=== PATIENT | female | born 1995 | race African-American/Black ===

== ENCOUNTER 2021-06-04 14:34 | Emergency (ER) | payer SELFPAY ==
[~2021-06-04] VITALS: Ht 167 cm; Wt 56.6 kg
[~2021-06-04 14:34] MED LIST: DICY20TA57 PO; FAMO20TA5 PO
--- NOTE | 2021-06-04 14:52 | ED GU-Female ---
General Chief Complaint: Female Reproductive Stated Complaint: CRAMPING, VAGINAL BLEEDING Source: patient Exam Limitations: no limitations History of Present Illness Date Seen by Provider: Jun 04, 2021 Time Seen by Provider: 14:51 Initial Comments To ER with lower abdominal cramping and vaginal bleeding. History of an ectopic . She had sex on May 23, she has had vaginal discharge and not been feeling well since then. She did take one test at home that was positive. Timing/Duration: constant Severity/Quality: moderate Location: suprapubic Radiation: none Activities at Onset: none Prior Genitourinary Problems: none Associated Symptoms: denies symptoms Allergies and Home Medications Allergies Coded Allergies: No Known Drug Allergies (Unverified , 09/08/13) Home Medications Dicyclomine Hcl 20 Mg Tablet, 1 EACH PO QID PRN Prescribed by: CHANO LOPEZ on 09/08/13 1859 Famotidine 20 Mg Tablet, 1 EACH PO BID Prescribed by: CHANO LOPEZ on 09/10/13 0110 Patient Home Medication List Home Medication List Reviewed: Yes Review of Systems Review of Systems Constitutional: see HPI EENTM: see HPI Respiratory: no symptoms reported Cardiovascular: no symptoms reported Genitourinary: no symptoms reported Musculoskeletal: no symptoms reported Skin: no symptoms reported Psychiatric/Neurological: No Symptoms Reported Endocrine: No Symptoms Reported Past Kbuilja-Lgolmo-Oxdgft Hx Past Medical History Reproductive Disorders: No Physical Exam Vital Signs Vital Signs - First Documented 06/04/21 14:55 Temp 36.6 Pulse 99 Resp 20 B/P (MAP) 126/85 (99) Pulse Ox 100 Capillary Refill : Height, Weight, BMI Height: '" Weight: 130lbs. oz. 58.380437ru; BMI Method:Stated General Appearance: WD/WN, no apparent distress HEENT: PERRL/EOMI, normal ENT inspection Cardiovascular: regular rate, rhythm, no murmur Respiratory: no respiratory distress, no accessory muscle use Gastrointestinal: normal bowel sounds, non tender, soft Extremities: normal range of motion, non-tender Neurologic/Psychiatric: alert, normal mood/affect, oriented x 3 Skin: normal color, warm/dry Progress/Results/Core Measures Suspected Sepsis SIRS Temperature: Pulse: Respiratory Rate: Laboratory Tests 06/04/21 15:00: White Blood Count 5.9 Blood Pressure / Mean: Laboratory Tests 06/04/21 15:00: Platelet Count 200 Results/Orders Lab Results Laboratory Tests Test 06/04/21 14:45 06/04/21 15:00 Range/Units Urine Color YELLOW Urine Clarity CLEAR Urine pH 6.5 5-9 Urine Specific [place] 1.025 H 1.016-1.022 Urine Protein NEGATIVE NEGATIVE Urine Glucose (UA) NEGATIVE NEGATIVE Urine Ketones TRACE H NEGATIVE Urine Nitrite NEGATIVE NEGATIVE Urine Bilirubin NEGATIVE NEGATIVE Urine Urobilinogen 1.0 < = 1.0 MG/DL Urine Leukocyte Esterase NEGATIVE NEGATIVE Urine RBC (Auto) NEGATIVE NEGATIVE Urine RBC NONE /HPF Urine WBC 0-2 /HPF Urine Crystals PRESENT H /LPF Urine Amorphous Sediment FEW VINI URATES H /LPF Urine Bacteria TRACE /HPF Urine Casts NONE /LPF Urine Mucus LARGE H /LPF Urine Culture Indicated NO White Blood Count 5.9 4.3-11.0 10^3/uL Red Blood Count 5.28 H 3.80-5.11 10^6/uL Hemoglobin 12.3 11.5-16.0 g/dL Hematocrit 38 35-52 % Mean Corpuscular Volume 73 L 80-99 fL Mean Corpuscular Hemoglobin 23 L 25-34 pg Mean Corpuscular Hemoglobin Concent 32 32-36 g/dL Red Cell Distribution Width 14.9 H 10.0-14.5 % Platelet Count 200 130-400 10^3/uL Mean Platelet Volume 11.5 9.0-12.2 fL Immature Granulocyte % (Auto) 0 % Neutrophils (%) (Auto) 57 42-75 % Lymphocytes (%) (Auto) 30 12-44 % Monocytes (%) (Auto) 10 0-12 % Eosinophils (%) (Auto) 4 0-10 % Basophils (%) (Auto) 0 0-10 % Neutrophils # (Auto) 3.3 1.8-7.8 10^3/uL Lymphocytes # (Auto) 1.7 1.0-4.0 10^3/uL Monocytes # (Auto) 0.6 0.0-1.0 10^3/uL Eosinophils # (Auto) 0.2 0.0-0.3 10^3/uL Basophils # (Auto) 0.0 0.0-0.1 10^3/uL Immature Granulocyte # (Auto) 0.0 0.0-0.1 10^3/uL Human Chorionic Gonadotropin, Quant 37 H <5 MIU/ML My Orders Orders - ALCIDES RIGGS APRN Ua Culture If Indicated (06/04/21 14:38) Cbc With Automated Diff (06/04/21 14:38) Hcg,Quantitative (06/04/21 14:50) Abo Rh Type (06/04/21 14:50) Ob Single Fetus<14 [id number] (06/04/21 15:28) Vital Signs/I&O 06/04/21 14:55 Temp 36.6 Pulse 99 Resp 20 B/P (MAP) 126/85 (99) Pulse Ox 100 Capillary Refill : Departure Communication (Admissions) NAME: SAMANTHA RIOJAS [facility] REC#: [id number] PT STATUS: REG ER : 1995 PHYSICIAN: ALCIDES RIGGS APRN ADMIT DATE: 06/04/21/ER Signed Date of Exam:06/04/21 US OB SINGLE FETUS<14 [id number] PROCEDURE: US OB SINGLE FETUS <14 WKS. TECHNIQUE: Multiple real-time grayscale images were obtained over the gravid uterus in various projections. INDICATION: Threatened miscarriage Uterus measures 7.0 x 5.3 x 5.5 cm. Endometrial stripe is 14 mm. There is no sonographic evidence for an intrauterine gestational sac. There is a thin layer of fluid within the endometrial cavity. Right ovary appears normal. Left ovary is obscured by bowel gas. There is no intraperitoneal free fluid seen. IMPRESSION: There is no sonographic evidence for an intrauterine or extrauterine . Dictated by: Dictated on workstation # [id number] Dict: 06/04/211 Trans: 06/04/21 164 [facility] [id number] Interpreted by: YOUSIF PADRON MD Electronically signed by: YOUSIF PADRON MD 06/04/21 164 Impression Primary Impression: Abdominal cramping Additional Impressions: Vaginal bleeding affecting early Positive test Disposition: HOME, SELF-CARE Condition: Stable Departure-Patient Inst. Decision time for Depature: 15:45 Referrals: FRANCISCA AUGUSTINE MD NO,LOCAL PHYSICIAN (PCP) Primary Care Physician Patient Instructions: Abdominal Pain, Adult ED Add. Discharge Instructions: I made an appointment t for you with Dr. Augustine next 06/12/2021 at 10 AM All discharge instructions reviewed with patient and/or family. Voiced understanding. Copy Copies To 1: FRANCISCA AUGUSTINE MD, PETER J APRN Jun 04, 2021 14:52
[2021-06-04 14:56] LABS: BILIRUBIN,URINE NEGATIVE (NEGATIVE); CLARITY,URINE CLEAR; COLOR,URINE YELLOW; GLUCOSE, URINE (UA) NEGATIVE (NEGATIVE); KETONES,URINE TRACE (NEGATIVE); LEUKOCYTE ESTERASE ,URINE NEGATIVE (NEGATIVE); NITRITE,URINE NEGATIVE (NEGATIVE); PH,URINE 6.5 (5-9); PROTEIN,URINE NEGATIVE (NEGATIVE)
[2021-06-04 15:14] LABS: BASOPHILS % (AUTO) 0 % (0-10); EOSINOPHILS # (AUTO) 0.2 10^3/uL (0.0-0.3); EOSINOPHILS % (AUTO) 4 % (0-10); HEMATOCRIT 38 % (35-52); HEMOGLOBIN 12.3 g/dL (11.5-16.0); LYMPHOCYTES # (AUTO) 1.7 10^3/uL (1.0-4.0); LYMPHOCYTES % (AUTO) 30 % (12-44); MEAN CORPUSCULAR HEMOGLOBIN 23 pg (25-34); MEAN CORPUSCULAR HGB CONC 32 g/dL (32-36); MEAN CORPUSCULAR VOLUME 73 fL (80-99); MEAN PLATELET VOLUME 11.5 fL (9.0-12.2); MONOCYTES # (AUTO) 0.6 10^3/uL (0.0-1.0); MONOCYTES % (AUTO) 10 % (0-12); NEUTROPHILS # (AUTO) 3.3 10^3/uL (1.8-7.8); NEUTROPHILS % (AUTO) 57 % (42-75); PLATELET COUNT 200 10^3/uL (130-400); WHITE BLOOD COUNT 5.9 10^3/uL (4.3-11.0)
[2021-06-04 15:19] LABS: BACTERIA,URINE TRACE /HPF; WBC,URINE 0-2 /HPF
[2021-06-04 15:20] LABS: AMORPHOUS SEDIMENT,UR FEW AMOR URATES /LPF
--- NOTE | 2021-06-04 16:45 | Diagnostic Imaging Report ---
PROCEDURE: US OB SINGLE FETUS <14 WKS. TECHNIQUE: Multiple real-time grayscale images were obtained over the gravid uterus in various projections. INDICATION: Threatened miscarriage Uterus measures 7.0 x 5.3 x 5.5 cm. Endometrial stripe is 14 mm. There is no sonographic evidence for an intrauterine gestational sac. There is a thin layer of fluid within the endometrial cavity. Right ovary appears normal. Left ovary is obscured by bowel gas. There is no intraperitoneal free fluid seen. IMPRESSION: There is no sonographic evidence for an intrauterine or extrauterine . Dictated by: Dictated on workstation # [id number]
[2021-06-04 16:55] VITALS: BP 124/80
== END 2021-06-04 16:57 | disposition home or self-care (01) ==
LOC: EDUNIT# 14:34 → ER 14:36
DX: O20.9 Hemorrhage in early pregnancy, unspecified (principal); R10.9 Unspecified abdominal pain; Z32.01 Encounter for pregnancy test, result positive; Z3A.00 Weeks of gestation of pregnancy not specified
CPT/HCPCS: 36415; 76801; 81000; 84702; 84703; 85025; 86900; 86901; 87070; 87205; 87210; 87491; 87591

== ENCOUNTER 2021-09-26 17:23 | Emergency (ER) | payer SELFPAY ==
[~2021-09-26] VITALS: Ht 167 cm; Wt 57.0 kg
--- OUTSIDE RECORDS SUMMARY | 2021-09-26 17:27 | XMS REPORT | Clinical Summary ---
Author Author [facility] Organization [facility] Address Unknown Phone Unavailable Care Team Providers Care Branch Chief Name Role Phone PCP Unavailable Source Comments [facility] (Labor and Delivery) documents do not appear in the [facility] Allergies Not on File Medications Please verify current medications with patient. Not on file Active Problems Not on file Social History Date Tobacco Use Types Packs/Day Years Used Never Assessed Sex Assigned at Date Recorded Not on file Last Filed Vital Signs Not on file Plan of Treatment Health Maintenance Due Date Last Done Comments Cervical Cancer Screening 1995 HPV/Cotest 1994 Pap Smear 1994 COVID-19 Vaccine (1) 2006 Influenza Vaccine (#1) 2021 HPV Vaccine Aged Out No longer eligible based on patient's age to complete this topic Hepatitis A Vaccine Aged Out No longer eligible based on patient's age to complete this topic Hepatitis B Vaccine Aged Out No longer eligible based on patient's age to complete this topic Hib Vaccine Aged Out No longer eligible based on patient's age to complete this topic IPV Vaccine Aged Out No longer eligible based on patient's age to complete this topic Meningococcal Vaccine Aged Out No longer eligib le based on patient's age to (MCV4) complete this topic Pneumococcal Vaccine: Aged Out No longer eligib le based on patient's age to Pediatrics (0 to 5 Years) complete this topic and At-Risk Patients (6 to 64 Years) Rotavirus Vaccine Aged Out No longer eligible based on patient's age to complete this topic Results Not on filefrom Last 3 Months
--- NOTE | 2021-09-26 17:49 | ED GU-Female ---
General Chief Complaint: OB < 20 WEEKS Stated Complaint: 5-6 WKS PREG - SPOTTING / CRAMPING Nursing Triage Note: PT STATES THAT SHE HAD + TEST ON 09/16, PT STATES STARTED HAVING BLEEDING ON 09/17 TO 09/21. PT STATES STARTED HAVING SPOTTING AGAIN THIS AM. PT STATES HAS CRAMPING 06/02. PT STATES HAS HX OF ECTOPIC PREG IN 2018. Source: patient Exam Limitations: no limitations (HUMAIRA ALFARO) History of Present Illness Date Seen by Provider: Sep 26, 2021 Time Seen by Provider: 17:48 Initial Comments Patient is a 26-year-old female who presents the ED with lower abdominal cramping with vaginal spotting. She states 2 weeks ago she had a positive test. She had heavy vaginal bleeding two weeks which have improved. Started develop cramping today with spotting. Last menstrual cycle August 16. Patient is G6, P2 with a history of miscarriage, ectopic . She denies any vomiting or diarrhea. Mild discomfort with urination. She reports vaginal discharge described as brown. Patient in no acute distress. Denies chest pain, shortness of breath, headache, dizziness. Not currently take any medications. Not concern for sexual transmitted infections. (HUMAIRA ALFARO) Allergies and Home Medications Allergies Coded Allergies: No Known Drug Allergies (Unverified , 09/08/13) Patient Home Medication List Home Medication List Reviewed: Yes (RICKY EDWARDS MD) Dicyclomine Hcl (Bentyl) 20 Mg Tablet, 1 EACH PO QID PRN Prescribed by: CHANO LOPEZ on 09/08/13 185 Famotidine (Pepcid) 20 Mg Tablet, 1 EACH PO BID Prescribed by: CHANO LOPEZ on 09/10/13 0110 Metronidazole (Metronidazole) 500 Mg Tablet, 500 MG PO BID Prescribed by: ANSON DREW on 09/26/212008 Review of Systems Review of Systems Constitutional: No see HPI, No chills, No diaphoresis EENTM: No ear discharge, No hearing loss, No ear pain, No blurred vision Respiratory: No cough, No dyspnea on exertion Gastrointestinal: abdominal pain Genitourinary: discharge, dysuria, other (Vaginal bleeding) : Yes LMP: Aug 18, 2021 Musculoskeletal: No back pain, No joint pain Skin: No see HPI, No change in color (HUMAIRA ALFARO) Past Osnouhd-Tvzrxy-Afbruv Hx Patient Social History Tobacco Use?: No Substance use?: No Alcohol Use?: No Pt feels they are or have been: No (HUMAIRA ALFARO) Past Medical History Surgery/Hospitalization HX: pmh: previous ectopic preg. Last Menstrual Period: Aug 16, 2021 Reproductive Disorders: No (HUMAIRA ALFARO) Physical Exam Vital Signs Vital Signs - First Documented 09/26/21 09/26/21 17:28 20:21 Temp 37.0 Pulse 84 Resp 18 B/P (MAP) 126/80 (95) Pulse Ox 100 O2 Delivery Room Air (ALCIDES RIGGS APRN) Vital Signs Capillary Refill : Less Than 3 Seconds (HUMAIRA ALFARO) Height, Weight, BMI Height: '" Weight: 130lbs. oz. 58.836467wf; 20.00 BMI Method:Stated General Appearance: WD/WN, no apparent distress HEENT: PERRL/EOMI, normal ENT inspection, TMs normal Neck: non-tender, full range of motion, supple Cardiovascular: regular rate, rhythm, no edema, no gallop, no JVD Respiratory: chest non-tender, lungs clear, normal breath sounds Gastrointestinal: normal bowel sounds, non tender, soft Back: normal inspection, no CVA tenderness Extremities: normal range of motion, non-tender Skin: normal color, warm/dry (HUMAIRA ALFARO) Progress/Results/Core Measures Suspected Sepsis SIRS Temperature: Pulse: 84 Respiratory Rate: 18 Blood Pressure 126 /80 Mean: 95 (HUMAIRA ALFARO) Results/Orders Lab Results Laboratory Tests Test 09/26/21 17:47 09/26/21 18:51 09/26/21 18:53 Range/Units Urine Color YELLOW Urine Clarity CLEAR Urine pH 7.0 5-9 Urine Specific [place] 1.025 H 1.016-1.022 Urine Protein NEGATIVE NEGATIVE Urine Glucose (UA) NEGATIVE NEGATIVE Urine Ketones TRACE H NEGATIVE Urine Nitrite NEGATIVE NEGATIVE Urine Bilirubin NEGATIVE NEGATIVE Urine Urobilinogen 1.0 < = 1.0 MG/DL Urine Leukocyte Esterase NEGATIVE NEGATIVE Urine RBC (Auto) 2+ H NEGATIVE Urine RBC 2-5 H /HPF Urine WBC 2-5 /HPF Urine Squamous Epithelial Cells 10-25 H /HPF Urine Crystals NONE /LPF Urine Bacteria FEW H /HPF Urine Casts NONE /LPF Urine Mucus LARGE H /LPF Urine Culture Indicated NO Urine Test POSITIVE NEGATIVE White Blood Count 7.9 4.3-11.0 10^3/uL Red Blood Count 4.59 3.80-5.11 10^6/uL Hemoglobin 11.0 L 11.5-16.0 g/dL Hematocrit 34 L 35-52 % Mean Corpuscular Volume 74 L 80-99 fL Mean Corpuscular Hemoglobin 24 L 25-34 pg Mean Corpuscular Hemoglobin Concent 32 32-36 g/dL Red Cell Distribution Width 14.4 10.0-14.5 % Platelet Count 207 130-400 10^3/uL Mean Platelet Volume 12.0 9.0-12.2 fL Immature Granulocyte % (Auto) 0 % Neutrophils (%) (Auto) 65 42-75 % Lymphocytes (%) (Auto) 24 12-44 % Monocytes (%) (Auto) 8 0-12 % Eosinophils (%) (Auto) 3 0-10 % Basophils (%) (Auto) 1 0-10 % Neutrophils # (Auto) 5.1 1.8-7.8 10^3/uL Lymphocytes # (Auto) 1.9 1.0-4.0 10^3/uL Monocytes # (Auto) 0.6 0.0-1.0 10^3/uL Eosinophils # (Auto) 0.2 0.0-0.3 10^3/uL Basophils # (Auto) 0.0 0.0-0.1 10^3/uL Immature Granulocyte # (Auto) 0.0 0.0-0.1 10^3/uL Sodium Level 141 135-145 MMOL/L Potassium Level 3.8 3.6-5.0 MMOL/L Chloride Level 104 98-107 MMOL/L Carbon Dioxide Level 25 21-32 MMOL/L Anion Gap 12 5-14 MMOL/L Blood Urea Nitrogen 9 7-18 MG/DL Creatinine 0.83 0.60-1.30 MG/DL Estimat Glomerular Filtration Rate 100 BUN/Creatinine Ratio 11 Glucose Level 129 H 70-105 MG/DL Calcium Level 9.1 8.5-10.1 MG/DL Corrected Calcium 9.0 8.5-10.1 MG/DL Total Bilirubin 0.4 0.1-1.0 MG/DL Aspartate Amino Transf (AST/SGOT) 17 5-34 U/L Alanine Aminotransferase (ALT/SGPT) 15 0-55 U/L Alkaline Phosphatase 69 40-136 U/L Total Protein 7.3 6.4-8.2 GM/DL Albumin 4.1 3.2-4.5 GM/DL Human Chorionic Gonadotropin, Quant 1399 H <5 MIU/ML (ALCIDES RIGGS APRN) Micro Results Microbiology 09/26/21 Wet Prep - Final, Complete (ALCIDES RIGGS APRN) Vital Signs/I&O Capillary Refill : Less Than 3 Seconds (HUMAIRA ALFARO) Blood Pressure Mean: 95 Departure Communication (Admissions) Patient presents the ED for lower abdominal cramping and vaginal bleeding. She reports spotting. She states last menstrual cycle was August 16. History of miscarriage, ectopic . Patient does not appear in acute distress. Pelvic exam very small amount of blood noted in the vaginal canal. Cervix appears closed. No cervical motion tenderness. Very minimal brownish discharge. Positive for bacterial vaginosis. STD cultures pending at this time. Lab work was otherwise unremarkable. Patient Rh-. Beta quant 1399. Patient did not meet criteria for callback ultrasound secondary to low beta quant. She does not appear in any type of distress however I do recommend further evaluation with ultrasound. Ultrasound was ordered outpatient and will be performed in the morning. She is currently being managed at [facility] in [place] for her [employer] care. Normal white blood count. No peritoneal signs. Normal white blood count. If any change in symptoms strongly recommend return back to ED for further evaluation. (HUMAIRA ALFARO) 09/27/2021 at 1532 patient return for an outpatient ultrasound as this service was not available last night during her exam.. Dr. Zuniga (ER attending today) visited with the patient in the outpatient ultrasound department as the social service technician had concern for an ectopic . Dr. Zuniga (emergency department) offered to re-evaluate the patient again in the emergency room and manage any symptoms as necessary. Patient elected to just follow up with her obstetrics provider Dr. Jany Ch from [facility] However the ultrasound report from the radiologist shows no evidence of intrauterine or extrauterine with a normal- appearing right ovary, left ovary obscured by bowel gas and there is no free fluid seen. (ALCIDES RIGGS APRN) Impression Primary Impression: Abdominal cramping Additional Impression: Vaginal bleeding affecting early Disposition: 01 HOME, SELF-CARE Condition: Improved Departure-Patient Inst. Decision time for Depature: 20:06 (HUMAIRA ALFARO) Referrals: [facility],LOCAL PHYSICIAN (PCP) Primary Care Physician Patient Instructions: Bleeding In Early Scripts Metronidazole (Metronidazole) 500 Mg Tablet 500 MG PO BID for 7 Days, #14 TAB Prov: HUMAIRA ALFARO 09/26/21 Work/School Note: Family Work Note, Work Release Form Date Seen in the Emergency Department: Sep 26, 2021 Return to Work: Sep 28, 2021 Restrictions: No Restrictions HUMAIRA ALFARO Sep 26, 2021 17:49 ALCIDES RIGGS APRN Sep 27, 2021 15:52 RICKY EDWARDS MD Oct 01, 2021 06:02
[2021-09-26 17:50] LABS: BILIRUBIN,URINE NEGATIVE (NEGATIVE); CLARITY,URINE CLEAR; COLOR,URINE YELLOW; GLUCOSE, URINE (UA) NEGATIVE (NEGATIVE); KETONES,URINE TRACE (NEGATIVE); LEUKOCYTE ESTERASE ,URINE NEGATIVE (NEGATIVE); NITRITE,URINE NEGATIVE (NEGATIVE); PROTEIN,URINE NEGATIVE (NEGATIVE)
[2021-09-26 17:59] LABS: BACTERIA,URINE FEW /HPF
[2021-09-26 18:55] LABS: BASOPHILS % (AUTO) 1 % (0-10); EOSINOPHILS # (AUTO) 0.2 10^3/uL (0.0-0.3); EOSINOPHILS % (AUTO) 3 % (0-10); HEMATOCRIT 34 % (35-52); LYMPHOCYTES # (AUTO) 1.9 10^3/uL (1.0-4.0); LYMPHOCYTES % (AUTO) 24 % (12-44); MEAN CORPUSCULAR HEMOGLOBIN 24 pg (25-34); MEAN CORPUSCULAR HGB CONC 32 g/dL (32-36); MEAN CORPUSCULAR VOLUME 74 fL (80-99); MONOCYTES # (AUTO) 0.6 10^3/uL (0.0-1.0); MONOCYTES % (AUTO) 8 % (0-12); NEUTROPHILS # (AUTO) 5.1 10^3/uL (1.8-7.8); NEUTROPHILS % (AUTO) 65 % (42-75); PLATELET COUNT 207 10^3/uL (130-400); WHITE BLOOD COUNT 7.9 10^3/uL (4.3-11.0)
[2021-09-26 19:25] LABS: ALBUMIN 4.1 GM/DL (3.2-4.5); BILIRUBIN,TOTAL 0.4 MG/DL (0.1-1.0); CALCIUM 9.1 MG/DL (8.5-10.1); CREATININE SERUM 0.83 MG/DL (0.60-1.30); POTASSIUM 3.8 MMOL/L (3.6-5.0); TOTAL PROTEIN 7.3 GM/DL (6.4-8.2)
[2021-09-26] MEDS ORDERED: METR-145 PO (20:09)
[2021-09-26 20:21] VITALS: BP 121/92
== END 2021-09-26 20:26 | disposition home or self-care (01) ==
LOC: EDUNIT# 17:23 → ER 17:25
DX: O20.9 Hemorrhage in early pregnancy, unspecified (principal); Z3A.00 Weeks of gestation of pregnancy not specified
CPT/HCPCS: 36415; 80053; 81000; 84702; 84703; 85025; 87210; 87491; 87591

== ENCOUNTER → 2021-09-27 | Outpatient (CLI) | payer SELFPAY ==
[~2021-09-27] MED LIST changes: +METR-145 PO
--- NOTE | 2021-09-27 16:32 | Diagnostic Imaging Report ---
INDICATION: Vaginal spotting/bleeding. Positive test. COMPARISON: None. TECHNIQUE: A routine transpelvic and transvaginal sonogram was performed. FINDINGS: The uterus measures 7.9 cm in length by 4.8 cm in AP dimension by 4.6 cm transversely. No focal myometrial masses are seen. There is no evidence of a gestational sac within the endometrial canal. The endometrial stripe is diffusely hyperechoic and measures 5 to 6 mm in AP thickness. There does appear to be a gestational sac containing a yolk sac within the right adnexa adjacent to the right ovary. The gestational sac measures 6 mm. No pole is identified. A small amount of free fluid is also present within the right adnexa. The ovaries have an otherwise normal appearance. The right ovary measures 3.5 x 2.2 x 1.7 cm and the left ovary measures 2.6 x 1.6 x 1.9 cm. CLINICAL DATES: 6 weeks and 0 days with an estimated date of delivery of 05/23/2022. IMPRESSION: 1. Findings consistent with right adnexal ectopic gestational sac containing a yolk sac but no identifiable pole. 2. No intrauterine . 3. These results were called to Dr. Zuniga in the Emergency Room by the performing blueprint reader at the completion of the exam. Dictated by: Dictated on workstation # [id number]
== END ==
LOC: RAD 15:00
PROVIDERS: ATTEND Nurse Practitioner Family
DX: O26.851 Spotting complicating pregnancy, first trimester (principal); Z3A.01 Less than 8 weeks gestation of pregnancy
CPT/HCPCS: 76801; 76817

== ENCOUNTER 2023-04-02 19:24 | Emergency (ER) | payer BC ==
[~2023-04-02] VITALS: Ht 167.7 cm; Wt 62.0 kg
--- NOTE | 2023-04-02 20:29 | ED GU-Female ---
General Chief Complaint: OB < 20 WEEKS Stated Complaint: VAG BLEEDING POSITIVE PREG TEST Source: patient History of Present Illness Date Seen by Provider: April 02, 2023 Time Seen by Provider: 20:15 Initial Comments PT ARRIVES VIA POV FROM HOME PT STATES SHE IS AND HAVING SOME SPOTTING LMP 02/20/23, NORMAL. NO CONTROL SHE HAD A POSITIVE HOME TEST LAST Friday03/26/23, AND BEGAN SPOTTING THAT SAME DAY SHE HAS CONTINUED TO HAVE SPOTTING OFF AND ON SINCE THEN--HAS NOT USED ANY PADS, JUST BLOOD ON TISSUE WITH WIPING SHE HAS NOT HAD ANY PAIN OR CRAMPING. NO NAUSEA/VOMITING SYMPTOMS ARE NO DIFFERENT TODAY SHE HAS NOT SOUGHT CARE UNTIL CLAUDINE--STATES SHE CALLED HER MOTHER, WHO TOLD HER TO COME TO [facility]. SHE HAS NOT ATTEMPTED TO MAKE AN OB APPOINTMENT. SHE IS AB 3--2 LIVE BIRTHS, 1 ELECTIVE AB, 2 ECTOPICS WITH RIGHT SALPI NGECTOMY SHE DENIES SMOKING OR VAPING, OCCASIONAL ETOH USE--HAS DRANK IN LAST 24 HOURS, DENIES DRUG USE PCP: [facility]. PT LIVES HERE IN [place] Allergies and Home Medications Allergies Coded Allergies: No Known Drug Allergies (Unverified , 09/08/13) Patient Home Medication List Home Medication List Reviewed: Yes Dicyclomine Hcl (Bentyl) 20 Mg Tablet, 1 EACH PO QID PRN Prescribed by: CHANO LOPEZ on 09/08/13 1859 Famotidine (Pepcid) 20 Mg Tablet, 1 EACH PO BID Prescribed by: CHANO LOPEZ on 09/10/13 0110 Metronidazole (Metronidazole) 500 Mg Tablet, 500 MG PO BID Prescribed by: ANSON DREW on 09/26/212008 Review of Systems Review of Systems Constitutional: no symptoms reported Respiratory: no symptoms reported Cardiovascular: no symptoms reported Gastrointestinal: no symptoms reported Genitourinary: see HPI : Yes LMP: Feb 20, 2023 Skin: no symptoms reported Psychiatric/Neurological: No Symptoms Reported Endocrine: No Symptoms Reported Hematologic/Lymphatic: No Symptoms Reported Past Yfeqccf-Inbiyf-Cbaxpp Hx Patient Social History Tobacco Use?: No Use of E-Cig and/or Vaping dev: No Substance use?: No Alcohol Use?: Yes Alcohol Frequency: Couple times a week Past Medical History Surgery/Hospitalization HX: pmh: previous ectopic preg. Surgeries: Yes (RIGHT SALPINGECTOMY FOR ECTOPIC; ELECTIVE ) Respiratory: No Cardiac: No Neurological: No : Yes Hx : 6 Hx Para: 2 Hx Total # of Abortions (Sp): 3 (1 ELECTIVE , 2 ECOPTIC PREGNANCIES WITH RIGHT SALPINGECTOMY) Reproductive Disorders: No Genitourinary: No Gastrointestinal: No Musculoskeletal: No Endocrine: No HEENT: No Cancer: No Psychosocial: No Integumentary: No Blood Disorders: No Physical Exam Vital Signs Vital Signs - First Documented 04/02/23 20:08 Temp 36.6 Pulse 77 Resp 16 B/P (MAP) 128/99 (109) Pulse Ox 100 O2 Delivery Room Air Capillary Refill : Height, Weight, BMI Height: '" Weight: 130lbs. oz. 58.789951my; 20.00 BMI Method:Stated General Appearance: WD/WN, no apparent distress, thin Cardiovascular: regular rate, rhythm Respiratory: normal breath sounds Gastrointestinal: non tender, soft, no organomegaly Back: no CVA tenderness Extremities: normal inspection Neurologic/Psychiatric: filter tank tender II-XII nml as tested, no motor/sensory deficits, alert, normal mood/affect, oriented x 3 Skin: normal color (PT IS BLACK), warm/dry, tattoos/piercings Progress/Results/Core Measures Suspected Sepsis SIRS Temperature: Pulse: Respiratory Rate: Laboratory Tests 04/02/23 20:38: White Blood Count 8.8 Blood Pressure / Mean: Laboratory Tests 04/02/23 20:38: Platelet Count 185 Results/Orders Lab Results Laboratory Tests Test 04/02/23 20:38 Range/Units White Blood Count 8.8 4.3-11.0 10^3/uL Red Blood Count 4.81 3.80-5.11 10^6/uL Hemoglobin 11.2 L 11.5-16.0 g/dL Hematocrit 34 L 35-52 % Mean Corpuscular Volume 71 L 80-99 fL Mean Corpuscular Hemoglobin 23 L 25-34 pg Mean Corpuscular Hemoglobin Concent 33 32-36 g/dL Red Cell Distribution Width 14.9 H 10.0-14.5 % Platelet Count 185 130-400 10^3/uL Mean Platelet Volume 11.2 9.0-12.2 fL Human Chorionic Gonadotropin, Quant 147 H <5 MIU/ML My Orders Orders - JAVIER DUTTA DO Cbc No Diff (04/02/23 20:21) Hcg,Quantitative (04/02/23 20:21) Vital Signs/I&O 04/02/23 04/02/23 20:08 21:32 Temp 36.6 Pulse 77 94 Resp 16 16 B/P (MAP) 128/99 (109) 123/87 Pulse Ox 100 99 O2 Delivery Room Air Room Air Capillary Refill : Progress Note : Progress Note NO ULTRASOUND SERVICES AVAILABLE AT THIS TIME, AND PT IS NOT HEMORRHAGING OR HAVING ANY PAIN AND EMERGENT ULTRASOUND IS NOT WARRANTED AT THIS TIME. PT GOES TO [facility] FOR ALL MEDICAL CARE, INCLUDING WOMEN'S SERVICES. NO BLEEDING OR PAIN OR ANY COMPLAINTS DURING ER STAY VITALS STABLE BLOOD TYPE A+ DISCUSSED TEST RESULTS, ANTICIPATED COURSE, ACTIVITY RESTRICTIONS,NEED FOR FOLLOW UP AND RETURN PRECAUTIONS. Departure Impression Primary Impression: Vaginal bleeding affecting early Additional Impression: Threatened in early Disposition: 01 HOME, SELF-CARE Condition: Stable Departure-Patient Inst. Decision time for Depature: 21:20 Referrals: NO,LOCAL PHYSICIAN (PCP) Primary Care Physician Patient Instructions: Bleeding in Early ED, Threatened Miscarriage Add. Discharge Instructions: NOTHING IN VAGINA--NO TAMPONS, DOUCHING OR INTERCOURSE KEEP AN ACCURATE PAD COUNT--RETURN TO ER IF YOU ARE SOAKING MORE THAN 1 MAXI PAD AN HOUR CALL IN THE MORNING TO MAKE AN APPOINTMENT WITH OB. All discharge instructions reviewed with patient and/or family. Voiced understanding. JAVIER DUTAT DO April 02, 2023 20:29
[2023-04-02 20:50] LABS: MEAN CORPUSCULAR HGB CONC 33 g/dL (32-36); MEAN CORPUSCULAR VOLUME 71 fL (80-99); MEAN PLATELET VOLUME 11.2 fL (9.0-12.2)
[2023-04-02 20:51] LABS: WHITE BLOOD COUNT 8.8 10^3/uL (4.3-11.0)
[2023-04-02 20:52] LABS: HEMATOCRIT 34 % (35-52); HEMOGLOBIN 11.2 g/dL (11.5-16.0); MEAN CORPUSCULAR HEMOGLOBIN 23 pg (25-34)
[2023-04-02 20:53] LABS: PLATELET COUNT 185 10^3/uL (130-400)
[2023-04-02 21:32] VITALS: BP 123/87
== END 2023-04-02 21:32 | disposition home or self-care (01) ==
LOC: EDUNIT# 19:24 → ER 19:27
DX: O20.0 Threatened abortion (principal); Z3A.01 Less than 8 weeks gestation of pregnancy; Z90.721 Acquired absence of ovaries, unilateral
CPT/HCPCS: 36415; 84702; 85027